=== PATIENT | male | born 1980 | race Caucasian/White ===

== ENCOUNTER 2021-12-18 18:27 | Emergency (ER) | payer OTHER, SELFPAY ==
--- NOTE | ~2021-12-18 | XR_ITS ---
EXAM: XR toe 1st RT min 2V DATE: 12/18/2021 18:41 HISTORY: injury to great toe . COMPARISON: None available. FINDINGS: Normal mineralization. Oblique, minimally comminuted, nondisplaced fracture of the medial corner of the proximal aspect of the right first distal phalanx, with intra-articular extension. Nond isplaced, likely mildly comminuted tuft fracture of the right first distal phalanx. No lytic or blast ic lesion. Joint spaces are maintained. No erosion or periosteal change. Soft tissues within normal l imits. IMPRESSION: Oblique proximal and medial corner fracture and mildly comminuted tuft fracture of the ri ght distal first phalanx, detailed above. Reviewed, dictated and finalized at location [facility]. IMPRESSION: Oblique proximal and medial corner fracture and mildly comminuted t uft fracture of the right distal first phalanx, detailed above.
--- NOTE | 2021-12-18 18:27 | ED.LOWEXIN ---
HPI - Extremity Injury (Lower) General Chief Complaint: Extremity Injury, Lower Stated Complaint: INJURED TOE Time Seen by Provider: 12/18/21 18:47 Source: patient and RN notes reviewed Mode of arrival: ambulatory Limitations: no limitations History of Present Illness HPI Narrative: 41-year-old male presents with concern for injury to the first digit of his right foot. He reports 1 hour prior to arrival he dropped a propane tank on the toe. He reports a small amount of bleeding. Reports pain, swelling, bruising. MD complaint: foot injury Related Data Allergies Allergy/AdvReac Type Severity Reaction Status Date / Time No Known Allergies Allergy Unverified 08/03/21 16:54 Review of Systems Review of Systems: CONSTITUTIONAL: Denies malaise, chills, sweats, or fever. SKIN: Denies rash or itching, redness, warmth. Reports abrasion to the first digit of the right foot MUSCULOSKELETAL: Reports pain, swelling, bruising to the first digit of the right foot NEUROLOGIC: Denies numbness, weakness All systems reviewed & are unremarkable except as noted in HPI and below PMFSH Family History Family History Father Family history of coronary artery disease Social History Social History (Updated 08/03/21 @ 16:54 by Maddy Rodas) Smoking packs per day: 1 Smoking cigarettes per day: 20.0 Years smoked: 6 Smoking pack-years: 6.00 Smoking status: Former smoker Tobacco type: cigarettes Second hand tobacco smoke exposure: No Smoking end date: 03/19/01 Alcohol intake: current Drinks per week: 2 Substance use: never Substance use type: does not use Gender identity (if verbalized by the patient): Male Comments At time of signature, agree with nursing past medical, surgical, social and family history. There is no relevant family history pertinent to the presenting complaint Exam Narrative: GENERAL: Well-appearing, well-nourished, and in no acute distress. HEAD: Normocephalic, atraumatic. EYES: PERRLA, conjunctivae clear NECK: Supple. CHEST: Speaks in full sentences. No respiratory distress. HEART: Regular rate and rhythm. Normal and equal peripheral pulses. EXTREMITIES: First digit of the right foot has gross normal strength and sensation, limited range of motion. Moderate edema, ecchymosis. 5/5 strength with digit flexion and extension. Normal sensation with sensitivity to light touch and pain. General tenderness. No skin tenting, no devitalized tissue or atrophy, no trophic changes, no obvious deformity, alignment normal, nearby joints and structures intact. Distal pulses palpable and equal bilaterally, skin warm, dry, pink. Capillary refill less than 3 seconds. SKIN: Warm, dry, no rash. Small superficial laceration noted at the base of the nailbed of the first digit of the right foot, small subungual hematoma noted NEURO: Alert and oriented x3. PSYCH: Normal mood and affect Course Course Emergency Course: Patient is aware of diagnosis, understands and agrees to treatment plan. Anticipatory guidance given. Patient agrees to follow-up as directed and is aware of reasons to seek care at the emergency department. Portions of this record may have been created with voice recognition software Level of Care: Express Care Visit Vital Signs Vital signs: Vital Signs Temperature 97.9 F 12/18/21 18:42 Pulse Rate 71 12/18/21 18:42 Respiratory Rate 16 12/18/21 18:42 Blood Pressure 141/87 H 12/18/21 18:42 Pulse Oximetry 99 12/18/21 18:42 Temperature 97.9 F 12/18/21 18:42 Pulse Rate 71 12/18/21 18:42 Respiratory Rate 16 12/18/21 18:42 Blood Pressure 141/87 H 12/18/21 18:42 Pulse Oximetry 99 12/18/21 18:42 Reviewed. Procedures Nail Trephination Nail Trephination #1: Nail Trephination Date: 12/18/21 Nail Trephination Time: 18:56 Time out: Yes Location (toes): first digit Sterile prep:
[2021-12-18 18:42] VITALS: BP 141/87; PULSE 71; RESP 16; TEMP 36.6; O2SAT 99
== END 2021-12-18 19:16 | disposition home or self-care (01) ==
PROVIDERS: Emergency Provider Nurse Practitioner; PCP Family Medicine
DX: S92.421B Displaced fracture of distal phalanx of right great toe, initial encounter for open fracture (principal); S90.211A Contusion of right great toe with damage to nail, initial encounter; W20.8XXA Other cause of strike by thrown, projected or falling object, initial encounter; Z87.891 Personal history of nicotine dependence
CPT/HCPCS: 11740; 73660; 99213; 99214; G0463

== ENCOUNTER 2023-07-04 17:30 | Emergency (ER) | payer OTHER, SELFPAY ==
[2023-07-04 17:43] VITALS: BP 153/92; PULSE 82; RESP 16; TEMP 37.3; O2SAT 98
--- NOTE | 2023-07-04 17:46 | ED.URI ---
HPI - URI/Sore Throat General Chief Complaint: Upper Respiratory Infection Stated Complaint: SORE THROAT/RUNNY NOSE Time Seen by Provider: 07/04/23 17:46 Source: patient, RN notes reviewed and old records reviewed Mode of arrival: ambulatory Limitations: no limitations History of Present Illness HPI Narrative: 42 year old male who presents to [facility] care with complaints of 3 day history of cough,sore throat, sinus congestion,sinus drainage, ear aches, sinus pressure with no know fevers. Patient reports that he has been taking Advil cold and sinus for his symptoms. Patient reports that it is painful to swallow and at times to talk. Patient has noted dry cough, reports that his nasal drainage does have yellowish tinge, he report no known fevers but has felt hot at times and sweaty. Patient reports fullness to his ears and also some sinus pressure to his face. MD elicited complaint: cough, sore throat, rhinorrhea, nasal congestion, sinus pain and other (ear aches) Pertinent past history: seasonal allergies Onset (ago): day(s) (3) Consistency: progressively worsening Severity: severe Pain scale (0-10): 8 Able to tolerate fluids by mouth: Yes Exacerbating factors: swallowing Treatments prior to arrival: other (Advil cold and sinus) Related Data Home Medications Medication Instructions Recorded Confirmed aspirin 81 mg capsule 81 mg PO DAILY 07/04/23 07/04/23 biotin 1 mg capsule 1 mg PO DAILY 07/04/23 07/04/23 multivitamin 1 tablet PO DAILY 07/04/23 07/04/23 omega-3 fatty acids 1,000 mg PO DAILY 07/04/23 07/04/23 Allergies Allergy/AdvReac Type Severity Reaction Status Date / Time No Known Allergies Allergy Verified 07/04/23 17:37 Review of Systems Review of Systems: CONSTITUTIONAL: Reports malaise, chills,some sweats, no verified fever but has felt hot. EYES: Denies visual changes, redness, or discharge. ENT: Reports rhinorrhea, congestion,facial sinus pain, otalgia and sore throat. CARDIOVASCULAR: Denies chest pain, palpitations, or edema. RESPIRATORY: Reports cough.? Denies dyspnea. GASTROINTESTINAL: Denies abdominal pain, nausea, vomiting, diarrhea SKIN: Denies rash or itching. MUSCULOSKELETAL: Denies myalgia. NEUROLOGIC: Denies headache. All systems reviewed & are unremarkable except as noted in HPI and below PMFSH Past Medical History Medical History Crushing injury of toe of right foot Essential (primary) hypertension Seasonal allergies Surgical History Surgical History History of dental surgery Family History Family History Father Family history of coronary artery disease Social History Social History Social History: Smoking packs per day: 1 Smoking cigarettes per day: 20.0 Years smoked: 6 Smoking pack-years: 6.00 Smoking status: Former smoker Tobacco type: cigarettes Second hand tobacco smoke exposure: No Smoking end date: 03/19/01 Alcohol intake: current Drinks per week: 2 Substance use: never Substance use type: does not use Lack of Transportation: No Lack of Food: Never True Current Housing: I Have Housing Concerned About Future Housing: No Difficulty Paying Gas/Electric Bills: No Difficulty Paying for Meds: No Currently Unemployed: No Education: Decline to Answer Difficulty w/ Childcare or Family Care: No Living arrangements: with family Occupation/Education: occupation Gender identity (if verbalized by the patient): Male Sexual Orientation (if Verbalized by the Patient): Straight or Heterosexual Comments At time of signature, agree with nursing past medical, surgical, social and family history. There is no relevant family history pertinent to the presenting complaint Exam Narrative: GENERA
== END 2023-07-04 18:02 | disposition home or self-care (01) ==
PROVIDERS: Emergency Provider Registered Nurse; PCP Family Medicine
DX: J03.90 Acute tonsillitis, unspecified (principal); Z87.891 Personal history of nicotine dependence; I10 Essential (primary) hypertension; Z79.82 Long term (current) use of aspirin
CPT/HCPCS: 87081; 87880; 99213; G0463

== ENCOUNTER 2024-07-15 08:06 | Outpatient (CLI) | payer OTHER, SELFPAY ==
--- NOTE | ~2024-07-15 | XR_ITS ---
XR shoulder RT min 2V Ordering provider: Marii Tirado PA-C History: . M25.511 - Pain in right shoulder . Comparison: None. FINDINGS: BONES: No acute fracture or dislocation. JOINT SPACES: The acromioclavicular joint is normal. The glenohumeral joint is normal. SOFT TISSUES: Normal. IMPRESSION: No acute osseous abnormality right shoulder. Reviewed, dictated and finalized at location A.
== END 2024-07-15 08:07 | disposition home or self-care (01) ==
LOC: MICIMG 08:07
PROVIDERS: PCP Family Medicine; Visit Provider Physician Assistant
DX: M25.511 Pain in right shoulder (principal)
CPT/HCPCS: 73030